=== PATIENT | male | born 1980 | race Caucasian/White ===

== ENCOUNTER 2019-07-09 12:05 | Emergency (ER) | payer MEDICAID ==
[~2019-07-09] VITALS: Ht 172.7 cm; Wt 61.0 kg
[2019-07-09 13:00] VITALS: BP 105/76
== END 2019-07-09 16:00 | disposition home or self-care (01) ==
LOC: ER 12:05
DX: M54.42 Lumbago with sciatica, left side (principal)
CPT/HCPCS: 99283

== ENCOUNTER 2020-04-27 17:35 | Emergency (ER) | payer MEDICAID ==
[~2020-04-27] VITALS: Ht 172.7 cm; Wt 59.0 kg
[2020-04-27 17:40] VITALS: BP 107/80
== END 2020-04-27 20:30 | disposition left against medical advice (07) ==
LOC: ER 17:35
DX: M79.671 Pain in right foot (principal)
CPT/HCPCS: 99281